=== PATIENT | female | born 1980 | race Caucasian/White ===

== ENCOUNTER 2020-06-15 02:00 | Emergency (ER) | payer OTHER ==
[~2020-06-15 02:00] MED LIST: BACLOFEN 10MG T10 MG PO; DEXILANT60 MG PO; MACROBID100 MG PO; MORPHINE SULFAT15 MG PO; NAPROXEN500 MG PO; NEURONTIN300 MG PO; ONDANSETRON ODT4 MG PO; PHENERGAN25 M1 PO; PROMETHEGA12.5 MG/SU PR; REGLAN5 MG PO; SUCRALFATE1 GM PO; ZOFRAN8 MG PO
[2020-06-15 02:21] LABS: BASOPHIL 0.5 % (0-2); EOSINOPHIL 2.9 % (0-5); HCT 36.8 % (37.0-47.0); HGB 11.8 g/dl (12.5-16.0); LYMPHOCYTE 19.8 % (15-48); MCH 26.5 pg (25.0-31.0); MCHC 32.1 g/dL (32.0-36.0); MCV 82.7 fL (78.0-100.0); MONOCYTE 6.7 % (0-12); MPV 10.4 fL (6.0-9.5); NEUTROPHIL 69.7 % (41-80); NRBC 0; PLT 381 K/uL (150-400); RBC 4.45 M/uL (4.20-5.40); RDW 15.2 % (11.5-14.0); WBC 15.1 K/uL (4.0-10.5)
[2020-06-15 02:37] LABS: BUN/CREAT RATIO (CALC) 7.8 RATIO; CREATININE 0.77 mg/dL (0.51-0.95); POTASSIUM 3.8 mmol/L (3.5-5.1)
[2020-06-15] MEDS ORDERED: LEVETIRACETAM500 MG PO (04:23)
== END 2020-06-15 04:45 | disposition home or self-care (01) ==
LOC: FER 02:00
PROVIDERS: Emergency Medicine
DX: R56.9 Unspecified convulsions (principal); F17.210 Nicotine dependence, cigarettes, uncomplicated; Z87.01 Personal history of pneumonia (recurrent); Z88.1 Allergy status to other antibiotic agents; Z88.2 Allergy status to sulfonamides; Z20.822 Contact with and (suspected) exposure to COVID-19
CPT/HCPCS: 36415; 71045; 80048; 85025; J0780; J1953; J2060; U0002